=== PATIENT | female | born 1960 ===

== ENCOUNTER 2022-05-19 07:27 | Outpatient (REF) | payer OTHER, SELFPAY ==
--- NOTE | ~2022-05-19 | XR_ITS ---
EXAMINATION: AP BILATERAL KNEE. LEFT KNEE 2 VIEWS CLINICAL INFORMATION: Left knee pain COMPARISON: None TECHNIQUE: AP bilateral knee standing. Left knee 2 views. FINDINGS: AP bilateral knee: There is a mild loss of lateral compartment joint space left knee. Presently compartment joint space both knees are preserved. No fracture, loose bodies or soft tissue swelling seen. Left knee: The patellofemoral compartment joint space is normal. No visible acute fracture or dislocation seen. The soft tissues are normal. XR/XR knee LT 2V IMPRESSION: Mild degenerative changes lateral compartment with periarticular spurring of left knee on AP standing view. Right knee appears unremarkable.
--- NOTE | ~2022-05-19 | XR_ITS ---
EXAMINATION: AP BILATERAL KNEE. LEFT KNEE 2 VIEWS CLINICAL INFORMATION: Left knee pain COMPARISON: None TECHNIQUE: AP bilateral knee standing. Left knee 2 views. FINDINGS: AP bilateral knee: There is a mild loss of lateral compartment joint space left knee. Presently compartment joint space both knees are preserved. No fracture, loose bodies or soft tissue swelling seen. Left knee: The patellofemoral compartment joint space is normal. No visible acute fracture or dislocation seen. The soft tissues are normal. XR/XR knee standing BI IMPRESSION: Mild degenerative changes lateral compartment with periarticular spurring of left knee on AP standing view. Right knee appears unremarkable.
== END 2022-05-19 07:28 | disposition home or self-care (01) ==
LOC: HO.HOSX 07:27
PROVIDERS: Visit Provider Physician Assistant
DX: M25.562 Pain in left knee (principal)
CPT/HCPCS: 73560; 73565